=== PATIENT | male | born 1965 | race Caucasian/White ===

== ENCOUNTER 2019-05-27 03:30 | Emergency (ER) | payer BC, MEDICAID ==
[~2019-05-27] VITALS: Ht 180.3 cm; Wt 86.4 kg
[~2019-05-27 03:30] MED LIST: ASPI-1265 PO; COU5T PO; ENOX80SY7 SUBCUT
--- NOTE | 2019-05-27 03:38 | NUR ---
NOSE CLAMP PLACED IN TRIAGE
[2019-05-27] MEDS ORDERED: oxymetazoline 15 ML nasal spray NS ONE ×2 (03:40)
[2019-05-27] MEDS ORDERED: LIDOcaine Viscous 15ml cup MM PRN (03:50)
[2019-05-27] MEDS ORDERED: normal saline 1000ml 1,000 ML IVB ONE (03:51)
[2019-05-27] MEDS ORDERED: ondansetron/PF 4mg/2ml inj IV STA (03:58)
[2019-05-27] MEDS ORDERED: tranexamic acid 100mg/ml inj. TP ONE (04:05)
[2019-05-27 04:14] LABS: BASOPHILS # (AUTO) 0.1 X10'3 (0-0.2); BASOPHILS % (AUTO) 0.9 % (0-1); EOSINOPHILS # (AUTO) 0.2 X10'3 (0-0.9); EOSINOPHILS % (AUTO) 2.4 % (0-6); HEMATOCRIT 48.2 % (42.0-52.0); HEMOGLOBIN 16.9 g/dl (14.0-17.9); LYMPHOCYTES # (AUTO) 2.1 X10'3 (1.1-4.8); LYMPHOCYTES % (AUTO) 25.1 % (21-51); MEAN CORPUSCULAR HEMOGLOBIN 31.6 PG (27.0-31.0); MEAN CORPUSCULAR VOLUME 90.3 FL (78-98); MEAN PLATELET VOLUME 8.1 FL (7.4-10.4); MONOCYTES # (AUTO) 0.7 X10'3 (0-0.9); MONOCYTES % (AUTO) 7.7 % (2-12); NEUTROPHILS # (AUTO) 5.4 X10'3 (1.8-7.7); NEUTROPHILS % (AUTO) 63.9 % (42-75); PLATELET COUNT 239 X10'3 (140-440); RED BLOOD COUNT 5.34 X10'6 (4.70-6.10); RED CELL DISTRIBUTION WIDTH 13.1 % (11.5-14.5); WHITE BLOOD COUNT 8.5 X10'3 (4.5-11.0)
[2019-05-27 04:29] LABS: PARTIAL THROMBOPLASTIN TIME 50 SECONDS (22-32)
[2019-05-27] MEDS ORDERED: phytonadione 10 MG/1 ML amp PO ONE (04:50)
--- NOTE | 2019-05-27 05:26 | NUR ---
PT NOSE BLEED CONTINUES. DR. GARCIAS AND SRINIVASA LINCOLN MADE AWARE, AT BEDSIDE TO REASSESS AND TREAT.
--- NOTE | 2019-05-27 05:40 | NUR ---
DR. GARCIAS INSERTED RAPID RHINO TO RIGHT NARE. PT TOLERATED WELL.
--- NOTE | 2019-05-27 06:15 | NUR ---
patient received on bed awake,rhino rocket in plcaed to right nare.
--- NOTE | 2019-05-27 07:31 | NUR ---
awaiting ETA for transport to [facility].
--- NOTE | 2019-05-27 08:21 | NUR ---
Sbar called to [facility] ED spoke to Danny BOSCH.[facility] at bedside to transfer patient to [facility].
[2019-05-27 08:22] VITALS: BP 131/90
== END 2019-05-27 08:25 | disposition short-term general hospital (02) ==
LOC: ER 03:30
DX: R04.0 Epistaxis (principal); D68.32 Hemorrhagic disorder due to extrinsic circulating anticoagulants; Z86.711 Personal history of pulmonary embolism; Z87.891 Personal history of nicotine dependence; Z79.82 Long term (current) use of aspirin; Z79.01 Long term (current) use of anticoagulants; Z79.899 Other long term (current) drug therapy
CPT/HCPCS: 30905; 36415; 85025; 85610; 85730; 96374; 99285; J2405; J3430; J7030